=== PATIENT | female | born 1985 | race Caucasian/White ===

== ENCOUNTER 2016-11-03 16:30 | Emergency (ER) | payer SELFPAY ==
--- NOTE | 2016-11-05 11:08 | ER ---
ADMIT: 11/03/2016 RM/LOC: ER [facility] MR#: [id number] [place], [place] [id number] TIGRE ARREDONDO [address] [address] Emergency Room Report SEX: F AGE: 31 : 1985 DATE: 11/03/2016 ADDENDUM: This patient comes into the ER because she has a headache, goes into the back of her neck and the top of her back and she is extremely tired was unable to go to work today because of her headache. On physical exam, she is alert and oriented, answers questions and speaks appropriately. IV of normal saline was started. She was given Toradol and Reglan, which really decreased her pain. She was discharged to follow up with her primary as needed. Please see my T-sheet. VIK Martines / Mitchell Sellers MD / star JOB #: [id number] CC: Mitchell Sellers MD, Attending Physician Evelina Brewer MD, Family Physician
== END 2016-11-03 18:30 | disposition home or self-care (01) ==
LOC: ER 16:30
DX: R51 Headache (principal)